=== PATIENT | female | born 1960 | race Caucasian/White ===

== ENCOUNTER 2018-12-30 07:04 | Day surgery (SDC) | payer MEDICAID ==
[2018-12-30] MEDS ORDERED: Lactated Ringers 1,000 ML IV SCH (07:30)
[2018-12-30] MEDS ORDERED: Midazolam 1 MG/ML 2 ML SDV ONE (07:41)
[2018-12-30] MEDS ORDERED: fentaNYL 100 MCG/2 ML SDV ONE (07:41)
[2018-12-30] MEDS ORDERED: Propofol 200 MG/20 ML SDV ONE (07:41)
--- NOTE | 2018-12-30 13:11 | OR ---
DATE OF PROCEDURE: 12/30/2018 PREOPERATIVE DIAGNOSIS: Colon cancer screening. POSTOPERATIVE DIAGNOSIS: Unremarkable colonoscopy. PROCEDURE: Colonoscopy to the ileo-right colon anastomosis. SURGEON: Jevon Gonsalez MD ANESTHESIA: IV anesthesia with monitored anesthesia care. INDICATION: This 58-year-old white female is referred for a colonoscopy for colon cancer screening. She says her last colonoscopic exam was done 10-1/2 years ago. She does have a history of undergoing a limited right hemicolectomy for diverticulitis. I counseled her for the procedure, including risks and alternatives, and she gave her informed consent to proceed. DESCRIPTION OF PROCEDURE: The patient was placed in the left lateral decubitus position. IV anesthesia was administered by the Anesthesia Service. Time-out was held. A rectal exam was performed, which was unremarkable. The flexible video Olympus colonoscope was introduced through her anus, up her rectum and out her colon all the way to the anastomosis. The scope was then slowly withdrawn, examining the mucosa throughout. No mucosal abnormalities were noted. The scope was retroflexed in the rectum with the distal rectum appearing unremarkable. The scope was straightened and removed. She tolerated the procedure well. Jevon Gonsalez MD /[id number] [place]
== END 2018-12-30 09:44 | disposition home or self-care (01) ==
LOC: JP.SDS 07:04
PROVIDERS: ATTEND Surgery
DX: Z12.11 Encounter for screening for malignant neoplasm of colon (principal); E78.5 Hyperlipidemia, unspecified; F41.9 Anxiety disorder, unspecified; F17.200 Nicotine dependence, unspecified, uncomplicated; Z90.49 Acquired absence of other specified parts of digestive tract; Z87.19 Personal history of other diseases of the digestive system
CPT/HCPCS: 45378; J2250; J2704; J3010; J7120

== ENCOUNTER 2020-05-24 10:09 | Emergency (ER) | payer MEDICAID ==
[2020-05-24] MEDS ORDERED: cefTRIAXone 1 GM Vial IM ONE (10:40)
--- NOTE | 2020-05-24 10:47 | EDM.PDOC ---
ED HPI GENERAL MEDICAL PROBLEM - General Chief Complaint: ENT Problem Stated Complaint: ABCSESS TOOTH Time Seen by Provider: 05/24/20 10:42 Source of Information: Reports: Patient History Limitations: Reports: No Limitations - History of Present Illness INITIAL COMMENTS - FREE TEXT/NARRATIVE: pt has a lower front tooth on the rt.-- the filling came out of it and she was seen by the dentist on Sunday and was told she had an abcess. She was not given antibiotics at the time. Onset: Gradual, Other ( She has alot of swellin on the chin) Duration: Hour(s): Location: Reports: Face Associated Symptoms: Reports: No Other Symptoms Tooth/Teeth Pain Score (Numeric/FACES): 10 - Related Data Allergies Allergy/AdvReac Type Severity Reaction Status Date / Time No Known Allergies Allergy Verified 05/24/20 10:28 Home Meds: Home Meds Aspirin [Halfprin] 81 mg PO DAILY 12/23/18 [History] Sertraline [Zoloft] 25 mg PO DAILY 12/23/18 [History] Simvastatin [Zocor] 20 mg PO BEDTIME 12/23/18 [History] Past Medical History - Past Health History Medical/Surgical History: Denies Medical/Surgical History Cardiovascular History: Reports: High Cholesterol Respiratory History: Reports: Other (See Below) Other Respiratory History: empha Gastrointestinal History: Reports: Other (See Below) Other Gastrointestinal History: hx of resection 2008 b/c of diverticuli Neurological History: Reports: Migraines Psychiatric History: Reports: Anxiety - Infectious Disease History Infectious Disease History: Reports: Chicken Pox - Past Surgical History GI Surgical History: Reports: Small Bowel Social & Family History - Family History Family Medical History: Unobtainable - Tobacco Use Smoking Status *Q: Current Every Day Smoker Years of Tobacco use: 40 Packs/Tins Daily: 0.5 - Caffeine Use Caffeine Use: Reports: Coffee - Recreational Drug Use Recreational Drug Use: No ED ROS ENT - Review of Systems Review Of Systems: See Below Constitutional: Reports: Chills HEENT: Reports: Dental Pain, Other (pt has had severe pain over the weekend. ) Respiratory: Reports: No Symptoms Cardiovascular: Reports: No Symptoms Endocrine: Reports: No Symptoms GI/Abdominal: Reports: No Symptoms ED EXAM, ENT - Physical Exam Exam: See Below Text/Narrative:: pt has significant facial swelling of the chin area. Exam Limited By: No Limitations General Appearance: Alert, Anxious Ears: Normal External Exam Nose: Normal Inspection Mouth/Throat: Dental Pain, Other (pt hs an abcess at the base of the rt front, lower faraz. This is very tender. ) Head: Atraumatic Course - Vital Signs Last Recorded V/S: Last Vital Signs Temp 36.4 C 05/24/20 10:32 Pulse 66 05/24/20 10:32 Resp 14 05/24/20 10:32 BP 166/99 H 05/24/20 10:32 Pulse Ox 99 05/24/20 10:32 - Orders/Labs/Meds Orders: Active Orders 24 hr Category Date Time Status Lidocaine 1% [Xylocaine-MPF 1%] Med 05/24/20 10:41 Once 5 ml INJECT ONETIME ONE Meds: Medications Discontinued Medications Generic Name Dose Route Start Last Admin Trade Name Freq PRN Reason Stop Dose Admin Ceftriaxone Sodium 1 gm 05/24/20 10:40 Rocephin IM 05/24/20 10:41 ONETIME ONE - Re-Assessments/Exams Free Text/Narrative Re-Assessment/Exam: 05/24/20 10:45 pt was given rocephen 1 gm im. Departure - Departure Time of Disposition: 10:45 Disposition: Home, Self-Care 01 Condition: Fair Clinical Impression: Dental abscess - Discharge Information Referrals: Tiffanie Cleary PA [Primary Care Provider] - Care Plan Goals: irrigate mouth with warm water, amoxicillin 500mg qid for 10 days, norco 5/325 q6h prn for pain #6. use tylenol and motrin inbetween. Call dental office tomorrow. Sepsis Event Note (ED) - Evaluation Sepsis Screening Result: No Definite Risk - Focused Exam Vital Signs: Vital Signs Temp Pulse Resp BP Pulse Ox 05/24/20 10:32 36.4 C 66 14 166/99 H 99 - My Orders Last 24 Hours: My Active Orders 05/24/20 10:41 Lidocaine 1% [Xylocaine-MPF 1%] 5 ml INJECT ONETIME ONE - Assessment/Plan Last 24 Hours: My Active Orders 05/24/20 10:41 Lidocaine 1% [Xylocaine-MPF 1%] 5 ml INJECT ONETIME ONE
== END 2020-05-24 11:31 | disposition home or self-care (01) ==
LOC: JP.ED 10:09
DX: K04.7 Periapical abscess without sinus (principal); F41.9 Anxiety disorder, unspecified; F17.210 Nicotine dependence, cigarettes, uncomplicated; Z79.899 Other long term (current) drug therapy; Z79.82 Long term (current) use of aspirin
CPT/HCPCS: 96372; 99282; J0696; J2001; 99283